=== PATIENT | male | born 1955 | race Caucasian/White ===

== ENCOUNTER → 2023-05-06 14:53 | Outpatient (CLI) | payer MEDICARE, SELFPAY ==
--- NOTE | 2023-05-06 14:57 | DI.RAD.S_ITS ---
PROCEDURE: XR HAND LT MIN 3V INDICATIONS: impact to hand @ 4thMCP bone TECHNIQUE: 3 views of the hand(s) acquired. COMPARISON: None. FINDINGS: Bones: Comminuteddisplaced and angulated fracture involves the proximal shaft of the 5th metacarpus with adjacent soft tissue swelling. Moderate 1st MCP joint space narrowing with periarticular osteophyte formation. Carpal bones are normally aligned. No suspicious bony lesions. Soft tissues: No suspicious soft tissue calcifications. IMPRESSION: Comminuted, displaced and angulated fracture involving the proximal shaft of the 5th metacarpus. Dictated by: Samuel CORTEZ Interpreted: Enedina Reyes MD on 05/06/2023 at 15:05 Transcribed by: ELYSE on 05/06/2023 at 15:06 Approved by: Enedina Reyes M.D. on 05/06/2023 at 16:13
--- NOTE | 2023-05-07 14:47 | PM.PN.1 ---
Subjective Subjective Interval history: Received a call regarding this patient at the time he was seen in the outpatient urgent care. Consultation was requested regarding his radiographic findings of a 5th metacarpal fracture. Given those findings, had planned for outpatient follow-up and possible surgical fixation. Chart review today revealed that this was associated with an open wound. Given concern for a possible open fracture of which I was not aware at the time of the initial consult, I have requested the patient come back to the emergency department today so that I can evaluate the wound and determine an appropriate treatment plan. PFSH Social History Smoking Status: Never smoker
--- NOTE | 2023-05-07 17:47 | PM.PN.1 ---
Subjective Subjective Interval history: Patient returns for evaluation today given new report of an open wound. He describes an injury in which he hit his hand on his truck while moving some rocks. He had an outside in type mechanism with a wound located over the dorsum of his 4th metacarpal. He presented for care after noting some ongoing pain at the site and x-rays revealed the fracture for which I was previously consulted. Since the onset of the injury, which was approximately 6 days ago, he has had diminished pain and swelling. His small wound has closed. He has not had any infectious symptoms. He does have a baseline Dupuytren's contracture in the affected digit which has resulted in impaired use of the 5th digit. After discussion with him today, I do not feel that urgent surgical intervention is warranted given the outside-in mechanism of the wound over the dorsum of his hand as well as his improvement in the subsequent interval. I placed him back into a new ulnar gutter splint with the hand in intrinsic plus position. I have him scheduled to see me this week in clinic where we will obtain new x-rays in that splint and determine operative versus nonoperative treatment for the fracture. [facility] Social History Smoking Status: Never smoker
== END ==
PROVIDERS: Referring Provider Physician Assistant; Visit Provider Physician Assistant
DX: L03.90 Cellulitis, unspecified (principal); S62.327A Displaced fracture of shaft of fifth metacarpal bone, left hand, initial encounter for closed fracture
CPT/HCPCS: 73130

== ENCOUNTER 2024-02-18 13:05 | Emergency (ER) | payer MEDICARE, SELFPAY ==
[2024-02-18 13:14] VITALS: BP 134/63; PULSE 61; RESP 14; TEMP 36.8; O2SAT 100; BMI 21.7
--- NOTE | 2024-02-18 13:18 | DI.RAD.S_ITS ---
PROCEDURE: XR ANKLE RT MIN 3V INDICATIONS: ankle injury TECHNIQUE: 3 views of the ankle were acquired. COMPARISON: None. FINDINGS: Bones: No fractures or dislocations. Ankle mortise is normally aligned. No suspicious bony lesions. Soft tissues: No tibiotalar joint effusion. Achilles tendon appears normal. IMPRESSION: No visualized acute fracture or dislocation. However, if clinical concern and/or pain persist, short interval imaging followup in 7-10 days is recommended, as occult injury cannot be definitively excluded. Dictated by: Marcy Hyde M.D. on 02/18/2024 at 14:16 Approved by: Marcy Hyde M.D. on 02/18/2024 at 14:17
[2024-02-18 15:00] VITALS: PULSE 72
--- NOTE | 2024-02-18 15:34 | ED_ITS ---
HPI - Extremity Injury (Lower) General Chief Complaint: Extremity Injury, Lower Stated Complaint: r leg injury Time Seen by Provider: 02/18/24 15:09 Source: patient Mode of arrival: Wheelchair History of Present Illness HPI Narrative: 68-year-old male presents for evaluation of right ankle pain and swelling. Patient was walking near a golf cart and it rolled past his ankle. Patient isn't quite certain of the exact series of events but had an inversion injury to his ankle. He has had significant difficulty in bearing weight since the event earlier this morning. Took Tylenol prior to arrival. Denies any other accident or injury. Related Data Allergies Allergy/AdvReac Type Severity Reaction Status Date / Time erythromycin base Allergy Unknown Verified 02/18/24 13:14 [ERYTHROMYCIN BASE] Patient History Social History Smoking Status: Never smoker Smoking Status: Never smoker alcohol intake frequency: a few times a week Substance Use Type: does not use Exam Initial Vital Signs Initial Vital Signs: Vital Signs Temperature 98.2 F 02/18/24 13:14 Pulse Rate 61 02/18/24 13:14 Respiratory Rate 14 02/18/24 13:14 Blood Pressure 134/63 02/18/24 13:14 Pulse Oximetry 100 02/18/24 13:14 Oxygen Delivery Method Room Air 02/18/24 13:14 Const: Awake, alert, no acute distress, nontoxic appearing MSK: Generalized swelling right ankle, medial malleolar tenderness to palpation Skin: Warm, Dry, intact, no rashes Neuro: AO x3, CN II-XII grossly intact, moves all extremities Course Orders Ordered: Discontinued Medications Hydrocodone Bitart/Acetaminophen (Hydrocodone/Acet 5/325 Tablet) 1 tab PO NOW ONE Stop: 02/18/24 15:36 Last Admin: 02/18/24 15:56 Dose: 1 tab Documented By: KLS Vital Signs Vital signs: Vital Signs - 8 hr 02/18/24 13:14 Temperature 98.2 F Pulse Rate 61 Respiratory Rate 14 Blood Pressure 134/63 Pulse Oximetry 100 Oxygen Delivery Method Room Air MDM - Extremity Injury (Lower) Differential Diagnosis Differential diagnosis: Likely ankle sprain and strain, fracture of toe and ankle fracture Imaging Data Extremity x-ray #1: Radiologist's Impression: PROCEDURE: XR ANKLE RT MIN 3V INDICATIONS: ankle injury TECHNIQUE: 3 views of the ankle were acquired. COMPARISON: None. FINDINGS: Bones: No fractures or dislocations. Ankle mortise is normally aligned. No suspicious bony lesions. Soft tissues: No tibiotalar joint effusion. Achilles tendon appears normal. IMPRESSION: No visualized acute fracture or dislocation. However, if clinical concern and/or pain persist, short interval imaging followup in 7-10 days is recommended, as occult injury cannot be definitively excluded. Dictated by: Marcy Hyde M.D. on 02/18/2024 at 14:16 Approved by: Marcy Hyde M.D. on 02/18/2024 at 14:17 [facility] Narrative Medical decision making narrative: Ankle pain and swelling after inversion injury. X-ray read as no acute fracture, there may be a small hairline fracture at medial malleolar prominence. Out of precaution patient placed in stirrup splint and given crutches. Patient declined pain medications. Orthopedic follow up advised. Discharge Plan Departure Patient Disposition: Home Clinical Impression: Ankle fracture Instructions: DI for Ankle Fracture Activity Restrictions/Additional Instructions: Your x-ray results show you may have a hairline crack in the inner portion of your ankle. Out of precaution you has been placed in his splint. Use the crutches as needed for help with weight-bearing. Take Tylenol and ibuprofen at home as needed for pain. Elevate your extremity above heart level to help with swelling. Follow up with your orthopedic doctor at [facility] Referrals: Misjossie,MD Eliza [Primary Care Provider] - Stand Alone Forms: Patient Portal/API
[2024-02-18 15:45] VITALS: BP 148/72; PULSE 70; RESP 16; O2SAT 99
[2024-02-18] MEDS: HYDROCODONE/ACET 5/325 TABLET 1 TAB PO (15:56)
== END 2024-02-18 16:07 | disposition home or self-care (01) ==
PROVIDERS: Emergency Provider Emergency Medicine
DX: S82.51XA Displaced fracture of medial malleolus of right tibia, initial encounter for closed fracture (principal); X50.1XXA Overexertion from prolonged static or awkward postures, initial encounter
CPT/HCPCS: 29515; 73610; 99283; 99284

== ENCOUNTER → 2025-03-29 11:44 | Outpatient (CLI) | payer MEDICARE, SELFPAY | PROVIDERS: PCP Family Medicine; Visit Provider Nurse Practitioner Family | DX: R30.0 Dysuria (principal) | CPT/HCPCS: 87077; 87086; 87186 ==

== ENCOUNTER → 2025-04-17 10:09 | Outpatient (CLI) | payer MEDICARE, SELFPAY | PROVIDERS: PCP Family Medicine; Visit Provider Registered Nurse | DX: R30.0 Dysuria (principal) | CPT/HCPCS: 81002; 87077; 87086; 87186 ==

== ENCOUNTER → 2025-05-02 14:04 | Outpatient (CLI) | payer MEDICARE, SELFPAY | PROVIDERS: PCP Family Medicine; Visit Provider Family Medicine | DX: Z87.440 Personal history of urinary (tract) infections (principal) | CPT/HCPCS: 87086 ==